=== PATIENT | male | born 1950 | race Caucasian/White ===

== ENCOUNTER 2024-02-15 16:22 | Emergency (ER) | payer SELFPAY ==
[~2024-02-15] VITALS: Ht 167.6 cm; Wt 74.8 kg
[2024-02-15 16:29] VITALS: BP 120/75; PULSE 75; RESP 18; TEMP 97.3; O2SAT 98
[2024-02-15 17:50] VITALS: BP 111/62; PULSE 80; RESP 14; TEMP 97.3; O2SAT 95
== END 2024-02-15 17:50 | disposition home or self-care (01) ==
LOC: EDBD 16:22 → MED 16:22
DX: F03.90 Unspecified dementia, unspecified severity, without behavioral disturbance, psychotic disturbance, mood disturbance, and anxiety (principal)
CPT/HCPCS: 99283